=== PATIENT | male | born 1960 | race Caucasian/White ===

== ENCOUNTER 2020-06-29 22:10 | Day surgery (SDC) | payer OTHER ==
[~2020-06-29] VITALS: Ht 182.9 cm; Wt 73.0 kg
[2020-06-29] MEDS ORDERED: SIMV20TA22 PO (22:20)
[2020-06-29] MEDS ORDERED: PRIL20TA2 PO (22:20)
[2020-06-29] MEDS ORDERED: NITROGLYCERIN 0.4 MG SUBL TABLET SL STA (23:26)
[2020-06-29] MEDS ORDERED: GLUCAGON INJ 1MG VIAL IV STA (23:26)
[2020-06-30 00:11] LABS: BASO % 0.4 % (0.0-1.0); EOS # 0.1 10^3/uL (0.0-0.5); EOS % 0.9 % (0.0-3.0); HEMATOCRIT 45.5 % (42.0-52.0); HEMOGLOBIN 15.5 g/dl (13.5-17.5); LYMPH # 0.9 10^3/uL (1.5-5.0); LYMPH % 11.5 % (24.0-44.0); MEAN CORPUSCULAR HEMOGLOBIN 31.6 pg (27.0-33.0); MEAN CORPUSCULAR HGB CONC 34.1 g/dl (32.0-36.5); MEAN CORPUSCULAR VOLUME 92.7 fl (80.0-96.0); MONO # 0.6 10^3/uL (0.0-0.8); MONO % 7.5 % (0.0-5.0); NEUTROPHILS # 6.4 10^3/uL (1.5-8.5); NEUTROPHILS % 79.1 % (36.0-66.0); PLATELET COUNT, AUTOMATED 285 10^3/uL (150-450); RED BLOOD COUNT 4.91 10^6/uL (4.30-6.10)
[2020-06-30 00:33] LABS: ALBUMIN 3.9 GM/DL (3.2-5.2); ALT/SGPT 28 U/L (12-78); BILIRUBIN,DIRECT 0.1 MG/DL (0.0-0.2); BILIRUBIN,TOTAL 0.4 MG/DL (0.2-1.0); BLOOD UREA NITROGEN 19 MG/DL (7-18); CALCIUM LEVEL 9.3 MG/DL (8.5-10.1); CARBON DIOXIDE LEVEL 27 MEQ/L (21-32); CHLORIDE LEVEL 107 MEQ/L (98-107); CREATININE FOR GFR 1.15 MG/DL (0.70-1.30); GLOMERULAR FILTRATION RATE > 60.0 (>56); GLUCOSE, FASTING 116 MG/DL (70-100); LIPASE 156 U/L (73-393); POTASSIUM SERUM 4.1 MEQ/L (3.5-5.1); SODIUM LEVEL 139 MEQ/L (136-145); TOTAL PROTEIN 7.5 GM/DL (6.4-8.2)
[2020-06-30] MEDS ORDERED: MORPHINE 2 MG/ML 1ML VIAL (J2270) IV PRN (01:00)
[2020-06-30] MEDS ORDERED: ONDANSETRON 4MG/2ML VIAL IV PRN (01:00)
[2020-06-30] MEDS ORDERED: FAMO40TA3 PO (01:41)
[2020-06-30] MEDS: LR 1,000 ML IV SCH ×2 (02:30→11:00)
[2020-06-30 02:45] VITALS: BP 145/74
[2020-06-30 06:00] VITALS: BP 116/78
[2020-06-30] MEDS ORDERED: PANTOPRAZOLE 40MG VIAL (C9113 PER 1) IV SCH (09:00)
[2020-06-30] MEDS ORDERED: propofoL 200 MG/20 ML VIAL As Ordered ONE (09:04)
[2020-06-30] MEDS ORDERED: fentaNYL 100 MCG/2 ML INJECTION (J3010) As Ordered ONE (09:04)
[2020-06-30] MEDS ORDERED: LIDOCAINE 2% INJ 100 MG/5 ML SYRINGE As Ordered ONE (09:05)
[2020-06-30 10:20] VITALS: BP 138/79
[2020-06-30 10:50] VITALS: BP 136/78
--- NOTE | 2020-06-30 13:56 | ECGEPIP ---
[facility] - ED Test Date: 2020-06-30 Pat Name: KENDRA GROVES Department: Room: [place] [address] Gender: Male Bankruptcy Legal Assistant: NACHO : 1960 Requested By: CIARA Avilez Order Number: [id number] Reading MD: Ada Boone Measurements Intervals [place] Rate: 79 P: 53 SC: 164 QRS: 90 QRSD: 94 T: 37 QT: 360 QTc: 413 Interpretive Statements SINUS RHYTHM INCOMPLETE RIGHT BUNDLE BRANCH BLOCK No prior Electronically Signed on 06-30-2020 13:56:41 EDT by Ada Boone
--- NOTE | 2020-07-03 13:07 | ROOR ---
Patient Name: Avel Hernandez Procedure Date: 06/30/2020 9:13 AM Date of : 1960 Age: 60 Room: Main OR Gender: Male Note Status: Finalized Procedure: Upper GI endoscopy Indications: Foreign body in the esophagus Providers: Hector Barrios MD Referring MD: 3. Emergency Dept 3. Emergency Dept Requesting Provider: Medicines: Monitored Anesthesia Care Complications: No immediate complications. Procedure: Pre-Anesthesia Assessment: - Prior to the procedure, a History and Physical was performed, and patient medications and allergies were reviewed. The patient is competent. The risks and benefits of the procedure and the sedation options and risks were discussed with the patient. All questions were answered and informed consent was obtained. Patient identification and proposed procedure were verified by the physician, the nurse and the anesthesiologist in the procedure room. Mental Status Examination: alert and oriented. Airway Examination: normal oropharyngeal airway and neck mobility. Respiratory Examination: clear to auscultation. CV Examination: normal. Prophylactic Antibiotics: The patient does not require prophylactic antibiotics. Prior Anticoagulants: The patient has taken no previous anticoagulant or antiplatelet agents. ASA Grade Assessment: II - A patient with mild systemic disease. After reviewing the risks and benefits, the patient was deemed in satisfactory condition to undergo the procedure. The anesthesia plan was to use monitored anesthesia care (MAC). Immediately prior to administration of medications, the patient was re-assessed for adequacy to receive sedatives. The heart rate, respiratory rate, oxygen saturations, blood pressure, adequacy of pulmonary ventilation, and response to care were monitored throughout the procedure. The physical status of the patient was re-assessed after the procedure. The Endoscope was introduced through the mouth, and advanced to the duodenal bulb. The upper GI endoscopy was somewhat difficult due to presence of food. Findings: Food was found in the middle third of the esophagus. Removal of food was accomplished. The food particles were broken down with manual pushing under visualization and irrigation. The meat was stuck at mid esophagus (25 cms and distal esophagus 35 cms) Estimated blood loss: none. Lavage of the area was performed using a small amount of normal saline, resulting in clearance with good visualization. Localized mild mucosal changes characterized by erythema and hemorrhagic appearance were found in the lower third of the esophagus. A small hiatal hernia was present. Striped mildly erythematous mucosa without bleeding was found in the gastric antrum. The first portion of the duodenum was normal. Impression: - Food in the middle third of the esophagus. Removal was successful. - Erythematous, hemorrhagic appearing mucosa in the esophagus. - Small hiatal hernia. - Erythematous mucosa in the antrum. - Normal first portion of the duodenum. Recommendation: - Use Prilosec (omeprazole) 40 mg PO daily indefinitely. Attending Participation: I personally performed the entire procedure. Hector Barrios MD Hector Barrios MD 07/03/2020 1:06:21 PM Electronically signed by Hector Barrios MD Number of Addenda: 0 Note Initiated On: 06/30/2020 9:13 AM Estimated Blood Loss: Estimated blood loss: none.
== END 2020-06-30 12:39 | disposition home or self-care (01) ==
LOC: M ED 22:10 → M SDC 22:11 → ENRESERV 06-30 01:33 → M SDC 06-30 02:45 → M MSPAV 06-30 02:45 → M SDC 06-30 12:39 → M MSPAV 06-30 12:39
PROVIDERS: ATTEND Surgery
DX: T18.128A Food in esophagus causing other injury, initial encounter (principal); E78.2 Mixed hyperlipidemia; K44.9 Diaphragmatic hernia without obstruction or gangrene; Z79.899 Other long term (current) drug therapy; Y92.89 Other specified places as the place of occurrence of the external cause
CPT/HCPCS: 43247; 80048; 80076; 83690; 84484; 85025; 93005; 93041; 94760; 96374; 96375; 99285; C9113; J1610; J3010; U0002